=== PATIENT | male | born 1950 | race Two or more races ===

== ENCOUNTER 2020-03-06 11:24 | Inpatient (IN) | payer OTHER ==
--- NOTE | 2020-03-06 11:35 | BHS.RME ---
Substance Use & Tx History - Substance Use History Heroin Substance amount: 7-8 bags Frequency of use: Daily Physical/Psych/Mental Status - Behavior General Behavior: Increased activity (restlessness, agitation) Eye Contact: Normal - Cooperativeness Cooperativeness: Cooperative - Thinking Thought Processes: Tight, Logical, Goal Directed - Physical Health Problems Is patient presently having any pain?: Yes (flank pain and cva tenderness) Does patient presently have any injuries (include location): No Does patient currently have a fever: No Is patient : No COWS - Scale Resting Pulse: 0= [place] 80 or Below Sweatin= Chills/Flushing Restless Observation: 3= Extraneous Movement Pupil Size: 1= Pupils >than Normal Bone or Joint Aches: 4=Acute Joint/Muscle Pain Runny Nose/ Eye Tearin= Runny Nose/Eyes GI Upset > 30mins: 3= Vomiting/Diarrhea Tremor Observation: 2= Slight Tremor Visible Yawning Observation: 2= >3x During Session Anxiety or Irritability: 2=Irritable/Anxious Goose Flesh Skin: 3=Piloerection COWS Score: 23 Treatment Recommendation - Level of Care Level of Care: Acute Medical (Sent to [facility] for rule out nephrolithiasis with B/L flank pain.)
[2020-03-06 17:43] VITALS: BMI 26.9
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
[2020-03-06] MEDS ORDERED: hydrOXYzine PAMOATE 25 MG CAPSULE (FP) PO PRN (18:31)
[2020-03-06] MEDS ORDERED: ACETAMINOPHEN 325 MG TABLET (FP) PO PRN (18:31)
[2020-03-06] MEDS ORDERED: MAGNESIUM CITRATE 300 ML BOTTLE PO PRN (18:31)
[2020-03-06] MEDS ORDERED: MAGNESIUM HYDROX 2400MG/30ML ORAL SUSPENSION 30 ML CUP PO PRN (18:31)
[2020-03-06] MEDS ORDERED: METHOCARBAMOL 500 MG TABLET PO PRN (18:31)
[2020-03-06] MEDS ORDERED: MENTHOL/PHENOL 1 EACH UD MM PRN (18:31)
[2020-03-06] MEDS ORDERED: BISMUTH SUBSALICYLATE 524 MG/30 ML UD PO PRN (18:31)
[2020-03-06] MEDS ORDERED: MAG HYDROX/AL HYDROX/SIMETH 30 ML UNIT-DOSE CUP PO PRN (18:31)
[2020-03-06] MEDS ORDERED: cloNIDine HCL 0.1 MG TABLET PO PRN (18:33)
[2020-03-06] MEDS ORDERED: METHADONE HCL 10 MG TABLET (FOR DETOX USE ONLY) PO ONE (18:33)
[2020-03-06] MEDS ORDERED: METHADONE HCL 5 MG TABLET (FOR DETOX USE ONLY) PO ONE (20:30)
[2020-03-06] MEDS: IBUPROFEN 400 MG TABLET (FP) PO PRN (20:41)
[2020-03-06] MEDS: MELATONIN 5 MG TABLETS PO PRN (22:32)
[2020-03-06] MEDS: THIAMINE HCL 100 MG TABLET (FP) PO SCH (22:32)
[2020-03-07] MEDS: IBUPROFEN 400 MG TABLET (FP) PO PRN ×2 (06:36→15:04)
[2020-03-07] MEDS: PRENATAL VITAMINS W/ FOLIC ACID TABLET (FP) PO SCH (09:55)
[2020-03-07] MEDS ORDERED: METHADONE HCL 5 MG TABLET (FOR DETOX USE ONLY) PO ONE (10:00)
--- NOTE | 2020-03-07 11:04 | PN ---
BHS COWS - Scale Resting Pulse: 0= [place] 80 or Below Sweatin= No chills or Flushing Restless Observation: 0= Sits Still Pupil Size: 1= Pupils >than Normal Bone or Joint Aches: 1= Mild Discomfort Runny Nose/ Eye Tearin= None GI Upset > 30mins: 1= Stomach Cramp Tremor Observation of Outstretched Hands: 1= Tremor [place], Not Seen Yawning Observation: 0= None Anxiety or Irritability: 1=Feels Anxious/Irritable Goose Flesh Skin: 0=Smooth Skin COWS Score: 5 BHS Progress Note (SOAP) Subjective: 70 years old male admitted on 03/06/20 for opiate withdrawal sx management treating with methadone detox regiment feeling better today less general body aches mild muscle cramping discussing medication assisted treatment program encouraging mr gage picks up narcan from pharmacy upon discharge from detox mr gage was in ER on 03/06/20 for chronic back pain referred to [facility] for opiate detox mr gage is doing well with methadone detox regiment at this time Objective: 03/07/20 11:06 Vital Signs - 24 hr 03/06/20 03/06/20 03/06/20 17:42 19:32 20:31 Temperature 97.6 F 97.8 F 97.3 F L Pulse Rate 71 60 70 Respiratory 18 17 18 Rate Blood Pressure 136/75 129/77 130/72 O2 Sat by Pulse 99 100 Oximetry (%) 03/07/20 03/07/20 06:22 08:40 Temperature 97.3 F L 97.1 F L Pulse Rate 68 56 L Respiratory 18 18 Rate Blood Pressure 113/64 139/77 O2 Sat by Pulse 98 Oximetry (%) 03/07/20 11:09 lab see ER result Assessment: 03/07/20 11:10 opiate withdrawal Plan: methadone regiment
--- NOTE | 2020-03-07 11:53 | EKG ---
Test Reason : Blood Pressure : / mmHG Vent. Rate : 059 BPM Atrial Rate : 059 BPM P-R Int : 192 ms QRS Dur : 096 ms QT Int : 400 ms P-R-T Axes : 076 049 034 degrees QTc Int : 396 ms SINUS BRADYCARDIA WITH PREMATURE ATRIAL COMPLEXES OTHERWISE NORMAL ECG NO PREVIOUS ECGS AVAILABLE Confirmed by RENEE GARDNER, BASIL ([id number]) on 03/07/2020 11:53:11 AM Referred By: Confirmed By:BASIL DURAN MD
[2020-03-07] MEDS: LIDOCAINE 5% TOPICAL PATCH TP SCH (16:30)
[2020-03-07] MEDS ORDERED: LIDOCAINE PATCH REMOVAL MC SCH (22:00)
[2020-03-07] MEDS: THIAMINE HCL 100 MG TABLET (FP) PO SCH (22:11)
[2020-03-07] MEDS: MELATONIN 5 MG TABLETS PO PRN (22:12)
[2020-03-08 09:07] VITALS: BP 135/82; PULSE 73; TEMP 96.8
[2020-03-08] MEDS: IBUPROFEN 400 MG TABLET (FP) PO PRN (09:17)
[2020-03-08] MEDS: LIDOCAINE 5% TOPICAL PATCH TP SCH (09:18)
[2020-03-08] MEDS: PRENATAL VITAMINS W/ FOLIC ACID TABLET (FP) PO SCH (09:19)
--- NOTE | 2020-03-08 09:49 | PN ---
S Progress Note Note: Pt leaving today, unable to get chest xray today, will cancel order
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
[2020-03-08] MEDS ORDERED: METHADONE HCL 5 MG TABLET (FOR DETOX USE ONLY) PO ONE (10:00)
[2020-03-08] MEDS ORDERED: METHADONE HCL 10 MG TABLET (FOR DETOX USE ONLY) PO ONE (10:00)
== END 2020-03-08 11:52 | disposition other institution (70) | DRG 897 ==
LOC: YASAS 11:24 → Y3N 18:30
PROVIDERS: ADMIT Allergy & Immunology; ATTEND Allergy & Immunology
PROC: HZ2ZZZZ Detoxification Services for Substance Abuse Treatment (ICD-10-PCS; principal; 2020-03-06)
DX: F11.23 Opioid dependence with withdrawal (principal); F14.20 Cocaine dependence, uncomplicated; F17.210 Nicotine dependence, cigarettes, uncomplicated; F31.9 Bipolar disorder, unspecified; M54.5 Low back pain; G89.29 Other chronic pain; Z91.5 Personal history of self-harm
CPT/HCPCS: 86780; 87389; 93005; 93010; J0735; U0003

== ENCOUNTER 2020-03-06 12:14 | Emergency (ER) | payer OTHER ==
[2020-03-06 12:28] VITALS: TEMP 98.2; BMI 26.9
[2020-03-06] MEDS ORDERED: ACETAMINOPHEN 1000 MG/100 ML VIAL (NON FORMULARY) IVPB ONE (12:46)
[2020-03-06] MEDS ORDERED: KETOROLAC TROMETHAMINE 30 MG/1 ML VIAL IVPUSH ONE (12:46)
[2020-03-06] MEDS ORDERED: ACETAMINOPHEN INJECTION 100 ML IVPB ONE (13:13)
[2020-03-06] MEDS ORDERED: KETOROLAC TROMETHAMINE 30 MG/1 ML VIAL ONE (13:13)
[2020-03-06 13:34] LABS: BASO % 0.7 % (0-2.0); EOS % 0.8 % (0-4.5); HEMATOCRIT 39.8 % (35.4-49); HEMOGLOBIN 13.4 GM/dL (11.7-16.9); LYMPH % 18.9 % (8-40); MCH 32.1 pg (25.7-33.7); MCHC 33.6 g/dl (32.0-35.9); MEAN CELL VOLUME 95.5 fl (80-96); MEAN PLT VOLUME 7.3 fl (7.5-11.1); MONO % 18.8 % (3.8-10.2); NEUT % 60.8 % (42.8-82.8); PLATELET COUNT 273 K/MM3 (134-434); RBC 4.17 M/mm3 (4.00-5.60); RDW 13.4 % (11.9-15.9); WHITE BLOOD COUNT 10.2 K/mm3 (4.0-10.0)
[2020-03-06 14:00] LABS: ALBUMIN 4.1 g/dl (3.4-5.0); BILIRUBIN,TOTAL 1.1 mg/dL (0.2-1); BLOOD UREA NITROGEN 22.4 mg/dL (7-18); CALCIUM 9.2 mg/dL (8.5-10.1); CREATININE 1.2 mg/dL (0.55-1.3); POTASSIUM 4.5 mmol/L (3.5-5.1); TOT PROT 8.2 g/dl (6.4-8.2)
[2020-03-06 14:56] LABS: PH,URINE 5.5 (5.0-8.0); URINE APPEARANCE CLEAR; URINE BILIRUBIN NEGATIVE (NEGATIVE); URINE COLOR DK YELLOW; URINE GLUCOSE (UA) NEGATIVE (NEGATIVE); URINE KETONE NEGATIVE (NEGATIVE); URINE LEUK ESTERASE NEGATIVE (NEGATIVE); URINE NITRITE NEGATIVE (NEGATIVE); URINE PROTEIN NEGATIVE (NEGATIVE)
--- NOTE | 2020-03-06 15:17 | PDOC ---
History of Present Illness - General Chief Complaint: Back Pain Stated Complaint: BACK PAIN Time Seen by Provider: 03/06/20 12:35 - History of Present Illness Initial Comments: 03/06/20 15:15 70-year-old male with back pain x2 days seen in the emergency room yesterday was given a Motrin with minimal relief and today he was given codeine at another emergency room. He comes in today with similar complaints. No radicular sympto ms loss of bowel bladder function saddle paresthesias or systemic symptoms. Past History - Medical History Allergies/Adverse Reactions: Allergies Allergy/AdvReac Type Severity Reaction Status Date / Time No Known Allergies Allergy Verified 03/06/20 12:25 Home Medications: Ambulatory Orders NK [No Known Home Medication] 03/06/20 COPD: No GI Disorders: Yes (hep c) - Psycho-Social/Smoking History Smoking History: Current every day smoker Have you smoked in the past 12 months: Yes Number of Cigarettes Smoked Daily: 2 Information on smoking cessation initiated: No - Substance Abuse Hx (Audit-C & DAST Scrn) How often the patient has a drink containing alcohol: Monthly or less Number of drinks the patient has on a typical day: 1 or 2 How often the patient has six or more drinks on one occasion: Less than monthly Score: In Men: 4 or > Positive; In Women: 3 or > Positive: 2 Screen Result (Pos requires Nsg. Audit-10AR): Negative In the last yr the pt used illegal drug/Rx for NonMed reason: Yes Score: Yes response is considered Positive: 1 Screen Result (Positive result requires Nsg. DAST-10): Positive Review of Systems - Review of Systems Constitutional: No: Fever Musculoskeletal: Yes: Back Pain *Physical Exam - Vital Signs Last Vital Signs Temp Pulse Resp BP Pulse Ox 98.2 F 73 18 134/73 99 03/06/20 12:26 03/06/20 12:26 03/06/20 12:26 03/06/20 12:26 03/06/20 14:56 - Physical Exam 03/06/20 15:15 Lumbar spine skin color temperature normal range of motion is slightly decreased. No midline tenderness. Moderate bilateral paralumbar musculature spasm and tenderness 5 out of 5 strength bilateral lower extremities without gross sensorimotor deficits thighs and calves are soft and nontender neurovascular intact ED Treatment Course - LABORATORY CBC & Chemistry Diagram: 03/06/20 13:25 03/06/20 13:25 - ADDITIONAL ORDERS Additional order review: Laboratory Results 03/06/20 03/06/20 14:34 13:25 Sodium 130 L Potassium 4.5 Chloride 92 L Carbon Dioxide 33 H Anion Gap 5 L BUN 22.4 H Creatinine 1.2 Est GFR (CKD-EPI)AfAm 71.58 Est GFR (CKD-EPI)NonAf 61.76 Random Glucose 117 H Calcium 9.2 Total Bilirubin 1.1 H AST 36 ALT 50 Alkaline Phosphatase 90 Total Protein 8.2 Albumin 4.1 Urine Color Dk yellow Urine Appearance Clear Urine pH 5.5 Ur Specific [place] 1.025 Urine Protein Negative Urine Glucose (UA) Negative Urine Ketones Negative Urine Blood Negative Urine Nitrite Negative Urine Bilirubin Negative Urine Urobilinogen 2.0 Ur Leukocyte Esterase Negative 03/06/20 13:25 RBC 4.17 MCV 95.5 MCHC 33.6 RDW 13.4 MPV 7.3 L Neutrophils % 60.8 Lymphocytes % 18.9 Monocytes % 18.8 H Eosinophils % 0.8 Basophils % 0.7 - Medications Given in the ED: ED Medications Discontinued Medications Generic Name Dose Route Start Last Admin Trade Name Freq PRN Reason Stop Dose Admin Acetaminophen 1,000 mg 03/06/20 12:46 03/06/20 13:28 Ofirmev Injection - IVPB 03/06/20 12:47 1,000 mg ONCE ONE Administration Ketorolac Tromethamine 30 mg 03/06/20 12:46 03/06/20 13:28 Toradol Injection - IVPUSH 03/06/20 12:47 30 mg ONCE ONE Administration Medical Decision Making - Medical Decision Making 03/06/20 15:15 Unremarkable urine. Laboratory work reviewed with attending physician. Okay to discharge. Hyponatremia noted. Patient advised to add salt to food. Feeling better after Toradol and IV Tylenol. Follow-up with orthopedic Surgery. I have reviewed the pathophysiology with the patient. They are in agreement with the treatment plan all questions were answered to their satisfaction. Understanding for follow-up without fail was also conveyed to the patient. Again they are in agreement.g Discharge - Discharge Information Problems reviewed: Yes Clinical Impression/Diagnosis: Lumbar strain Condition: Stable Disposition: HOME - Admission No - Follow up/Referral Referrals: Deyvi Matthews DO [Staff Physician] - - Patient Discharge Instructions Additional Instructions: Continue Tylenol and Motrin as directed for pain. Return to the emergency room for worsening symptoms. Without fail follow-up with orthopedic surgery in 2 to 3 days for further evaluation and treatment options. - Post Discharge Activity
[2020-03-06 15:29] VITALS: BP 132/68; PULSE 72
== END 2020-03-06 15:30 | disposition home or self-care (01) ==
LOC: JER 12:14
PROC: 3E033GC Introduction of Other Therapeutic Substance into Peripheral Vein, Percutaneous Approach (ICD-10-PCS; principal; 2020-03-06)
DX: S39.012A Strain of muscle, fascia and tendon of lower back, initial encounter (principal); Y99.9 Unspecified external cause status
CPT/HCPCS: 36415; 80053; 81003; 85025; 96374; 96375; 99284-25; J0131

== ENCOUNTER 2020-03-08 11:32 | Inpatient (IN) | payer OTHER ==
[2020-03-08] MEDS ORDERED: MAG HYDROX/AL HYDROX/SIMETH 30 ML UNIT-DOSE CUP PO PRN (13:02)
[2020-03-08] MEDS ORDERED: LOPERAMIDE HCL 2 MG CAPSULE PO PRN (13:02)
[2020-03-08] MEDS ORDERED: MAGNESIUM HYDROX 2400MG/30ML ORAL SUSPENSION 30 ML CUP PO PRN (13:02)
[2020-03-08] MEDS ORDERED: ACETAMINOPHEN 325 MG TABLET (FP) PO PRN (13:02)
[2020-03-08] MEDS ORDERED: P-EPHED 60MG/TRIPROLIDI 2.5MG TABLET PO PRN (13:02)
[2020-03-08] MEDS ORDERED: MENTHOL/PHENOL 1 EACH UD MM PRN (13:02)
[2020-03-08] MEDS ORDERED: guaiFENesin 200 MG/10 ML 10 ML UNIT-DOSE CUPS PO PRN (13:02)
[2020-03-08] MEDS ORDERED: NICOTINE POLACRILEX 2 MG GUM BUC PRN (13:02)
--- NOTE | 2020-03-08 13:06 | HP ---
KYLAH GARDNER Rehab Assess/Revision - Admission History Admitted to Rehab from: [facility] Date of Admission to Rehab: 03/08/2020 - Vital signs Vital Signs: Vital Signs Period Temp Pulse Resp BP Sys/Potts Pulse Ox Last 24 Hr 59 17 123/74 96 - Findings Detox History & Physical reviewed: Yes Concur with findings: Yes Inpatient Rehab Admission - Rehab Decision to Admit Inpatient rehab admission?: Yes - Initial Determination Are CD services needed?: Yes Free of communicable disease: Yes Not in need of hospitalization: Yes - Rehab Admission Criteria Previous failed treatment: Yes Poor recovery environment: Yes Comorbidities: Yes Lacks judgement: No Patient is meeting Inpatient Rehab admission criteria:: Yes
[2020-03-08] MEDS: THIAMINE HCL 100 MG TABLET (FP) PO SCH (22:40)
[2020-03-08] MEDS: IBUPROFEN 400 MG TABLET (FP) PO PRN (22:40)
[2020-03-08] MEDS: LIDOCAINE PATCH REMOVAL MC SCH (22:40)
[2020-03-08] MEDS: MELATONIN 5 MG TABLETS PO SCH (22:40)
[2020-03-09] MEDS: IBUPROFEN 400 MG TABLET (FP) PO PRN (08:17)
[2020-03-09] MEDS: LIDOCAINE 5% TOPICAL PATCH TP SCH (09:35)
[2020-03-09] MEDS: PRENATAL VITAMINS W/ FOLIC ACID TABLET (FP) PO SCH (09:35)
[2020-03-09] MEDS: NICOTINE 7 MG/24 HOURS TOPICAL PATCH TD SCH (09:36)
[2020-03-09 11:47] LABS: ALBUMIN 2.9 g/dl (3.4-5.0); BILIRUBIN,TOTAL 0.8 mg/dL (0.2-1); BLOOD UREA NITROGEN 12.9 mg/dL (7-18); CALCIUM 9.2 mg/dL (8.5-10.1); TOT PROT 6.7 g/dl (6.4-8.2)
[2020-03-09] MEDS: CYCLOBENZAPRINE HCL 10 MG TABLET (FP) PO PRN ×2 (12:05→22:10)
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
[2020-03-09] MEDS ORDERED: IBUPROFEN 400 MG TABLET (FP) PO PRN (19:15)
[2020-03-09] MEDS: MAGNESIUM CITRATE 300 ML BOTTLE PO PRN (19:48)
[2020-03-09] MEDS: LIDOCAINE PATCH REMOVAL MC SCH (22:10)
[2020-03-09] MEDS: MELATONIN 5 MG TABLETS PO SCH (22:10)
[2020-03-09] MEDS: THIAMINE HCL 100 MG TABLET (FP) PO SCH (22:10)
[2020-03-10] MEDS: IBUPROFEN 600 MG TABLET (FP) PO PRN ×2 (09:22→17:34)
[2020-03-10] MEDS: PRENATAL VITAMINS W/ FOLIC ACID TABLET (FP) PO SCH (09:22)
[2020-03-10] MEDS: CYCLOBENZAPRINE HCL 10 MG TABLET (FP) PO PRN ×2 (09:22→17:34)
[2020-03-10] MEDS: LIDOCAINE 5% TOPICAL PATCH TP SCH (09:23)
[2020-03-10] MEDS: NICOTINE 7 MG/24 HOURS TOPICAL PATCH TD SCH (09:28)
--- NOTE | 2020-03-10 11:55 | PN ---
[facility] Progress Note Note: Patient is referred for fever, flank and back pain and malaise. He is examined in his bed, in no apparent distress. Patient reports pain in his kidney and back, he also reports SOB when he places mask on. He denies chest pain, chills, palpitation, N/V or diarrhea He had a one-time fever of 100.2*F, he was given Motrin, at time of visit, temperature had resolved. At baseline, patient has chronic back pain and uses wheelchair for locomotion. Vital Signs - 8 hr 03/10/20 03/10/20 03/10/20 07:02 08:00 08:02 Temperature 97 F L 98.0 F Pulse Rate 67 78 Respiratory 18 18 Rate Blood Pressure 145/93 154/94 O2 Sat by Pulse 100 97 Oximetry (%) 03/10/20 03/10/20 03/10/20 09:08 10:25 11:39 Temperature 100.2 F H 98.7 F 97.8 F Pulse Rate 76 Respiratory 18 Rate Blood Pressure 123/76 O2 Sat by Pulse Oximetry (%) PE Chest: Lungs clear in all [place], not using accessory muscles CVS: S1S2, RRR Abdomen: BS x 4, firm, non-tender, mild R CVA tenderness Extremities: No cyanosis A/P Patient is a 70 year old man who presents with one-time fever this morning, resolved after 1 dose of Motrin 1. CBC, BMP, UA/C&S 2. Increase oral fluid intake 3. Monitoring ongoing d/w nursing.
[2020-03-10 12:43] LABS: HEMATOCRIT 40.1 % (35.4-49); HEMOGLOBIN 13.4 GM/dL (11.7-16.9); MCH 31.8 pg (25.7-33.7); MCHC 33.4 g/dl (32.0-35.9); MEAN CELL VOLUME 95.1 fl (80-96); MEAN PLT VOLUME 7.2 fl (7.5-11.1); PLATELET COUNT 318 K/MM3 (134-434); RBC 4.21 M/mm3 (4.00-5.60); RDW 13.3 % (11.9-15.9); WHITE BLOOD COUNT 7.8 K/mm3 (4.0-10.0)
[2020-03-10 13:09] LABS: BLOOD UREA NITROGEN 10.2 mg/dL (7-18); CALCIUM 9.3 mg/dL (8.5-10.1); POTASSIUM 5.4 mmol/L (3.5-5.1)
[2020-03-10] MEDS ORDERED: SODIUM POLYSTYRENE SULFONATE 15 GM/60 ML BOTTLE PO ONE (17:11)
--- NOTE | 2020-03-10 17:16 | PN ---
S Progress Note Note: Lab Review BMP resulted with abnormal potassium level Abnormal Lab Results 03/10/20 03/10/20 12:00 12:00 MPV 7.2 L Potassium 5.4 H Anion Gap 5 L Random Glucose 143 H STAT dose of kayexalate 15 gm ordered. Repeat BMP in the morning d/w nursing
[2020-03-10] MEDS: THIAMINE HCL 100 MG TABLET (FP) PO SCH (21:14)
[2020-03-10] MEDS: MELATONIN 5 MG TABLETS PO SCH (21:15)
[2020-03-10] MEDS: LIDOCAINE PATCH REMOVAL MC SCH (21:15)
[2020-03-11] MEDS: CYCLOBENZAPRINE HCL 10 MG TABLET (FP) PO PRN ×2 (06:48→21:24)
[2020-03-11] MEDS: IBUPROFEN 600 MG TABLET (FP) PO PRN (06:48)
[2020-03-11] MEDS ORDERED: KETOROLAC TROMETHAMINE 30 MG/1 ML VIAL IM PRN (07:11)
--- NOTE | 2020-03-11 07:14 | PN ---
[facility] Progress Note Note: Vital Signs Temperature 98.4 F 03/11/20 06:45 Pulse Rate 84 03/11/20 06:45 Respiratory Rate 16 03/11/20 06:45 Blood Pressure 152/103 H 03/11/20 06:45 O2 Sat by Pulse Oximetry (%) 95 03/11/20 06:45 Laboratory Tests 03/09/20 03/10/20 03/10/20 08:30 12:00 12:00 WBC 7.8 RBC 4.21 Hgb 13.4 Hct 40.1 MCV 95.1 MCH 31.8 MCHC 33.4 RDW 13.3 Plt Count 318 MPV 7.2 L Sodium 138 139 Potassium 5.0 5.4 H Chloride 102 104 Carbon Dioxide 32 30 Anion Gap 3 L 5 L BUN 12.9 10.2 Creatinine 1.0 1.0 Est GFR (CKD-EPI)AfAm 89.23 89.23 Est GFR (CKD-EPI)NonAf 76.99 76.99 Random Glucose 115 H 143 H Calcium 9.2 9.3 Total Bilirubin 0.8 AST 21 ALT 34 Alkaline Phosphatase 74 Total Protein 6.7 Albumin 2.9 L seen for unresolved back pain. client cont to complain of back pain now 06/08, pointing to mid flank area of both sides states radiating down right lateral side of back. requesting er eval. "I want the injection they gave me, it took my pain away". recently seen at [facility]- ER 03/06/2020 for same complaint... DX BACK STARIN, RECC ORTHO F/U labs noted. urine cx pending denies fever, chills, numbness, weakness, No radicular symptoms loss of bowel/ bladder function saddle paresthesias or systemic symptoms.+ intermittent sob, feels related to mask and pain unable to walk due to pain PE a/ o x3 appears to be in moderate distress due to pain, using wc for locomotion, propelling self with use of legs. Lumbar spine range of motion is slightly decreased 2/2 pain. No midline tenderness. Moderate bilateral paralumbar musculature tenderness 5 out of 5 strength bilateral lower extremities Ble non tender neuro-vascular intact 03/08/20 cxr noted with pleural thickening ? effusion- will repeat cxr for f/u. toradol 30 mg im now, then 15 mg q6 prn x 3 days. cont to monitor clinically
[2020-03-11] MEDS ORDERED: KETOROLAC TROMETHAMINE 30 MG/1 ML VIAL IM ONE (07:19)
[2020-03-11] MEDS: PRENATAL VITAMINS W/ FOLIC ACID TABLET (FP) PO SCH (09:56)
[2020-03-11] MEDS: NICOTINE 7 MG/24 HOURS TOPICAL PATCH TD SCH (09:56)
[2020-03-11] MEDS: LIDOCAINE 5% TOPICAL PATCH TP SCH (09:56)
[2020-03-11] MEDS: KETOROLAC TROMETHAMINE 15 MG/ML VIAL IM PRN ×2 (14:13→21:24)
[2020-03-11 16:39] LABS: BLOOD UREA NITROGEN 13.8 mg/dL (7-18); CREATININE 1.1 mg/dL (0.55-1.3); POTASSIUM 5.3 mmol/L (3.5-5.1)
--- NOTE | 2020-03-11 18:46 | PN ---
[facility] Progress Note Note: Potassium remains elevated. CMP Sodium 139 mmol/L (136-145) 03/11/20 08:14 Potassium 5.3 mmol/L (3.5-5.1) H 03/11/20 08:14 Chloride 103 mmol/L (98-107) 03/11/20 08:14 Carbon Dioxide 29 mmol/L (21-32) 03/11/20 08:14 Anion Gap 8 MMOL/L (8-16) 03/11/20 08:14 BUN 13.8 mg/dL (7-18) 03/11/20 08:14 Creatinine 1.1 mg/dL (0.55-1.3) 03/11/20 08:14 Est GFR (CKD-EPI)AfAm 79.52 03/11/20 08:14 Est GFR (CKD-EPI)NonAf 68.61 03/11/20 08:14 Random Glucose 176 mg/dL (74-106) H 03/11/20 08:14 Calcium 9.0 mg/dL (8.5-10.1) 03/11/20 08:14 Total Bilirubin 0.8 mg/dL (0.2-1) 03/09/20 08:30 AST 21 U/L (15-37) 03/09/20 08:30 ALT 34 U/L (13-61) 03/09/20 08:30 Alkaline Phosphatase 74 U/L (45-117) 03/09/20 08:30 Total Protein 6.7 g/dl (6.4-8.2) 03/09/20 08:30 Albumin 2.9 g/dl (3.4-5.0) L 03/09/20 08:30 Vital Signs 03/11/20 03/11/20 15:53 19:39 Temperature 98.9 F Pulse Rate 79 Respiratory 18 Rate Blood Pressure 138/77 O2 Sat by Pulse 95 97 Oximetry (%) Plan: Will place on decreased potassium diet. Todays CXR reviewed and unremarkable.
[2020-03-11] MEDS: LIDOCAINE PATCH REMOVAL MC SCH (21:22)
[2020-03-11] MEDS: MELATONIN 5 MG TABLETS PO SCH (21:22)
[2020-03-11] MEDS: THIAMINE HCL 100 MG TABLET (FP) PO SCH (21:23)
[2020-03-12] MEDS ORDERED: PT OWN MED DRAWER 7, Y5N ONE ×2 (06:40→22:01)
[2020-03-12] MEDS: CYCLOBENZAPRINE HCL 10 MG TABLET (FP) PO PRN (06:41)
[2020-03-12] MEDS: KETOROLAC TROMETHAMINE 15 MG/ML VIAL IM PRN (06:47)
[2020-03-12] MEDS: PRENATAL VITAMINS W/ FOLIC ACID TABLET (FP) PO SCH (09:44)
[2020-03-12] MEDS: LIDOCAINE 5% TOPICAL PATCH TP SCH (09:44)
[2020-03-12] MEDS: NICOTINE 7 MG/24 HOURS TOPICAL PATCH TD SCH (09:44)
--- NOTE | 2020-03-12 14:46 | PN ---
[facility] Progress Note Note: Lab reviewed below. Unresolved Hyperkalemia. Pt c/o severe Lower back pain. Reports pain is 10/10. Pt was put on Toradol and pharmacy alert for contraindication due to Hyperkalemia hypernatremia effects. Pt has been spoken to concerning high potassium and need to bring it down. pt understood. Reports he has not been drinking water and also likes orange juice. Laboratory Tests 03/09/20 03/10/20 03/10/20 08:30 12:00 12:00 WBC 7.8 RBC 4.21 Hgb 13.4 Hct 40.1 MCV 95.1 MCH 31.8 MCHC 33.4 RDW 13.3 Plt Count 318 MPV 7.2 L Sodium 138 139 Potassium 5.0 5.4 H Chloride 102 104 Carbon Dioxide 32 30 Anion Gap 3 L 5 L BUN 12.9 10.2 Creatinine 1.0 1.0 Est GFR (CKD-EPI)AfAm 89.23 89.23 Est GFR (CKD-EPI)NonAf 76.99 76.99 POC Glucometer Random Glucose 115 H 143 H Calcium 9.2 9.3 Total Bilirubin 0.8 AST 21 ALT 34 Alkaline Phosphatase 74 Total Protein 6.7 Albumin 2.9 L 03/11/20 03/12/20 08:14 06:37 WBC RBC Hgb Hct MCV MCH MCHC RDW Plt Count MPV Sodium 139 Potassium 5.3 H Chloride 103 Carbon Dioxide 29 Anion Gap 8 BUN 13.8 Creatinine 1.1 Est GFR (CKD-EPI)AfAm 79.52 Est GFR (CKD-EPI)NonAf 68.61 POC Glucometer 120 Random Glucose 176 H Calcium 9.0 Total Bilirubin AST ALT Alkaline Phosphatase Total Protein Albumin Hyperkalemia K+ = 5.4 Plan;D/w pt to increase po fluids d/c Toradol due to unresolved hyperkalemia dietary consult in the morning Tylenol 650 mg po Q6H x 2 days and re-evaluate Flexeril 5 mg po TID prn Lidocaine patch as directed Analgesic patch at 10pm after patch removed. d/w pt to avoid OJ for now Increase po fluids-water.
[2020-03-12] MEDS ORDERED: MASKS NR ONE (15:09)
[2020-03-12] MEDS ORDERED: ACETAMINOPHEN 325 MG TABLET (FP) PO SCH ×2 (15:45→22:00)
[2020-03-12] MEDS: ACETAMINOPHEN 325 MG TABLET (FP) PO PRN (16:59)
[2020-03-12] MEDS: MAGNESIUM CITRATE 300 ML BOTTLE PO PRN (19:17)
[2020-03-12] MEDS: MELATONIN 5 MG TABLETS PO SCH (21:59)
[2020-03-12] MEDS: METHYL SALICYLATE/MENTHOL OINT 30 GM TUBE TP SCH (21:59)
[2020-03-12] MEDS: THIAMINE HCL 100 MG TABLET (FP) PO SCH (21:59)
[2020-03-12] MEDS: LIDOCAINE PATCH REMOVAL MC SCH (21:59)
[2020-03-13] MEDS: CYCLOBENZAPRINE HCL 10 MG TABLET (FP) PO PRN ×2 (03:28→09:50)
[2020-03-13] MEDS: ACETAMINOPHEN 325 MG TABLET (FP) PO PRN ×2 (03:29→09:50)
[2020-03-13] MEDS: LIDOCAINE 5% TOPICAL PATCH TP SCH (09:49)
[2020-03-13] MEDS: PRENATAL VITAMINS W/ FOLIC ACID TABLET (FP) PO SCH (09:49)
[2020-03-13] MEDS: NICOTINE 7 MG/24 HOURS TOPICAL PATCH TD SCH (09:49)
--- NOTE | 2020-03-13 13:48 | PN ---
[facility] Progress Note Note: Lab review Laboratory Tests 03/09/20 03/10/20 03/10/20 08:30 12:00 12:00 WBC 7.8 RBC 4.21 Hgb 13.4 Hct 40.1 MCV 95.1 MCH 31.8 MCHC 33.4 RDW 13.3 Plt Count 318 MPV 7.2 L Sodium 138 139 Potassium 5.0 5.4 H Chloride 102 104 Carbon Dioxide 32 30 Anion Gap 3 L 5 L BUN 12.9 10.2 Creatinine 1.0 1.0 Est GFR (CKD-EPI)AfAm 89.23 89.23 Est GFR (CKD-EPI)NonAf 76.99 76.99 POC Glucometer Random Glucose 115 H 143 H Calcium 9.2 9.3 Total Bilirubin 0.8 AST 21 ALT 34 Alkaline Phosphatase 74 Total Protein 6.7 Albumin 2.9 L 03/11/20 03/12/20 03/13/20 08:14 06:37 07:30 WBC RBC Hgb Hct MCV MCH MCHC RDW Plt Count MPV Sodium 139 Potassium 5.3 H 5.6 H Chloride 103 Carbon Dioxide 29 Anion Gap 8 BUN 13.8 Creatinine 1.1 Est GFR (CKD-EPI)AfAm 79.52 Est GFR (CKD-EPI)NonAf 68.61 POC Glucometer 120 Random Glucose 176 H Calcium 9.0 Total Bilirubin AST ALT Alkaline Phosphatase Total Protein Albumin Repeat K+ still elevated at 5.6 today Pt denies chest pain, n/v. Reports BM x 3 today-normal Plan:Kayexalate 15 mg po once increase po fluids but no orange juice re-evaluate pt and repeat K+ level on 03/13/20
[2020-03-13] MEDS ORDERED: SODIUM POLYSTYRENE SULFONATE 15 GM/60 ML BOTTLE PO ONE (14:00)
[2020-03-13] MEDS ORDERED: IBUPROFEN 600 MG TABLET (FP) PO PRN (16:11)
[2020-03-13] MEDS ORDERED: CYCLOBENZAPRINE HCL 10 MG TABLET (FP) PO PRN (16:13)
[2020-03-13] MEDS ORDERED: IBUPROFEN 400 MG TABLET (FP) PO ONE (16:15)
[2020-03-13] MEDS ORDERED: ACETAMINOPHEN 325 MG TABLET (FP) PO PRN (16:15)
--- NOTE | 2020-03-13 17:07 | EKG ---
Test Reason : Blood Pressure : / mmHG Vent. Rate : 088 BPM Atrial Rate : 088 BPM P-R Int : 188 ms QRS Dur : 082 ms QT Int : 330 ms P-R-T Axes : 069 056 042 degrees QTc Int : 399 ms SINUS RHYTHM WITH OCCASIONAL PREMATURE VENTRICULAR COMPLEXES LEFT ATRIAL ENLARGEMENT NONSPECIFIC ST ABNORMALITY ABNORMAL ECG Confirmed by MD WILNER, THADDEUS ([id number]) on 03/13/2020 5:06:21 PM Referred By: Confirmed By:THADDEUS DARBY MD
[2020-03-13] MEDS: METHOCARBAMOL 500 MG TABLET PO SCH ×2 (17:21→21:24)
[2020-03-13] MEDS: IBUPROFEN 400 MG TABLET (FP) PO PRN (17:22)
[2020-03-13] MEDS: MELATONIN 5 MG TABLETS PO SCH (21:24)
[2020-03-13] MEDS: THIAMINE HCL 100 MG TABLET (FP) PO SCH (21:24)
[2020-03-13] MEDS: METHYL SALICYLATE/MENTHOL OINT 30 GM TUBE TP SCH (21:25)
[2020-03-13] MEDS: LIDOCAINE PATCH REMOVAL MC SCH (21:25)
[2020-03-14] MEDS: IBUPROFEN 400 MG TABLET (FP) PO PRN ×2 (02:36→12:48)
[2020-03-14] MEDS: ACETAMINOPHEN 325 MG TABLET (FP) PO PRN (08:51)
[2020-03-14] MEDS ORDERED: PT OWN MED DRAWER 7, Y5N ONE (09:06)
[2020-03-14] MEDS: NICOTINE 7 MG/24 HOURS TOPICAL PATCH TD SCH (09:33)
[2020-03-14] MEDS: LIDOCAINE 5% TOPICAL PATCH TP SCH (09:33)
[2020-03-14] MEDS: PRENATAL VITAMINS W/ FOLIC ACID TABLET (FP) PO SCH (09:33)
[2020-03-14 11:36] LABS: ALBUMIN 2.5 g/dl (3.4-5.0); BILIRUBIN,TOTAL 0.3 mg/dL (0.2-1); BLOOD UREA NITROGEN 13.1 mg/dL (7-18); CALCIUM 8.8 mg/dL (8.5-10.1); TOT PROT 6.2 g/dl (6.4-8.2)
--- NOTE | 2020-03-14 13:28 | PN ---
S Progress Note Note: Patient with c/o pain, reports that present pain regimen is not effective. Pain regimen changed: Motrin at 800mg TID Roboxin at 750 mg QID Maintain Lidoderm patch John Benjamin at night Continue to monitor.
[2020-03-14] MEDS: METHOCARBAMOL 500 MG TABLET PO SCH ×3 (14:13→21:20)
[2020-03-14] MEDS: THIAMINE HCL 100 MG TABLET (FP) PO SCH (21:21)
[2020-03-14] MEDS: MELATONIN 5 MG TABLETS PO SCH (21:21)
[2020-03-14] MEDS: METHYL SALICYLATE/MENTHOL OINT 30 GM TUBE TP SCH (21:22)
[2020-03-14] MEDS: LIDOCAINE PATCH REMOVAL MC SCH (21:22)
[2020-03-15] MEDS: IBUPROFEN 400 MG TABLET (FP) PO PRN ×2 (00:17→07:58)
[2020-03-15 07:03] VITALS: BP 149/89; PULSE 72; TEMP 97.5
[2020-03-15] MEDS: METHOCARBAMOL 500 MG TABLET PO SCH ×2 (09:02→13:42)
[2020-03-15] MEDS: PRENATAL VITAMINS W/ FOLIC ACID TABLET (FP) PO SCH (09:03)
[2020-03-15] MEDS: LIDOCAINE 5% TOPICAL PATCH TP SCH (09:03)
[2020-03-15] MEDS: NICOTINE 7 MG/24 HOURS TOPICAL PATCH TD SCH (09:03)
--- NOTE | 2020-03-15 10:35 | PN ---
[facility] Progress Note Note: lab review Laboratory Last Values WBC 7.8 K/mm3 (4.0-10.0) 03/10/20 12:00 RBC 4.21 M/mm3 (4.00-5.60) 03/10/20 12:00 Hgb 13.4 GM/dL (11.7-16.9) 03/10/20 12:00 Hct 40.1 % (35.4-49) 03/10/20 12:00 MCV 95.1 fl (80-96) 03/10/20 12:00 MCH 31.8 pg (25.7-33.7) 03/10/20 12:00 MCHC 33.4 g/dl (32.0-35.9) 03/10/20 12:00 RDW 13.3 % (11.9-15.9) 03/10/20 12:00 Plt Count 318 K/MM3 (134-434) 03/10/20 12:00 MPV 7.2 fl (7.5-11.1) L 03/10/20 12:00 Sodium 141 mmol/L (136-145) 03/14/20 07:50 Potassium 5.0 mmol/L (3.5-5.1) 03/14/20 07:50 Potassium Cancelled 03/14/20 07:50 Chloride 107 mmol/L (98-107) 03/14/20 07:50 Carbon Dioxide 30 mmol/L (21-32) 03/14/20 07:50 Anion Gap 4 MMOL/L (8-16) L 03/14/20 07:50 BUN 13.1 mg/dL (7-18) 03/14/20 07:50 Creatinine 1.0 mg/dL (0.55-1.3) 03/14/20 07:50 Est GFR (CKD-EPI)AfAm 89.23 03/14/20 07:50 Est GFR (CKD-EPI)NonAf 76.99 03/14/20 07:50 POC Glucometer 120 UNITS (80-120) 03/12/20 06:37 Random Glucose 108 mg/dL (74-106) H 03/14/20 07:50 Hemoglobin A1c % 7.0 % (4.2-6.3) H 03/14/20 07:50 Calcium 8.8 mg/dL (8.5-10.1) 03/14/20 07:50 Total Bilirubin 0.3 mg/dL (0.2-1) 03/14/20 07:50 AST 21 U/L (15-37) 03/14/20 07:50 ALT 27 U/L (13-61) 03/14/20 07:50 Alkaline Phosphatase 71 U/L (45-117) 03/14/20 07:50 Total Protein 6.2 g/dl (6.4-8.2) L 03/14/20 07:50 Albumin 2.5 g/dl (3.4-5.0) L 03/14/20 07:50 K+ = improved 5.0 Glc = 108 mg/dl
[2020-03-15] MEDS ORDERED: GABAPENTIN 100 MG CAPSULE PO PRN (10:44)
--- NOTE | 2020-03-15 10:57 | PN ---
S Progress Note Note: Patient seen for chronic back pain. Patient was seen at [facility] [place] 03/06/20 for the same issue. Patient Aox3 no acute distress ENT WNL FULL ROM, getting around in wheelchair able to self proper dx: Chronic bilateral sciatica Patient to encourage to follow up with PCP and ortho upon d/c added Gabapentin PRN 100mg for pain relief Continue to monitor
--- NOTE | 2020-03-15 13:40 | DS ---
[facility] Rehab Discharge Summary - [facility] Rehab Discharge Summary Admission Date: 03/08/20 Discharge Date: 03/15/20 - History Present History: Cocaine dependence, Opioid dependence Additional Comments: Patient successfully completed rehabilitation program. Patient medically stable in no distress. Patient to follow up wit PCP 1-2 weeks post discharge. Pertinent Past History: Back Pain Lumbar Strain - Discharge Physical Exam Vital Signs: Vital Signs Temperature 97.5 F L 03/15/20 07:02 Pulse Rate 72 03/15/20 07:02 Respiratory Rate 18 03/15/20 07:02 Blood Pressure 149/89 03/15/20 07:02 O2 Sat by Pulse Oximetry (%) 96 03/15/20 12:27 Pertinent Admission Physical Exam Findings: Current Active Problems Cocaine use disorder (Chronic) Opioid use disorder (Chronic) Substance induced mood disorder (Chronic) Vital Signs Temperature 97.5 F L 03/15/20 07:02 Pulse Rate 72 03/15/20 07:02 Respiratory Rate 18 03/15/20 07:02 Blood Pressure 149/89 03/15/20 07:02 O2 Sat by Pulse Oximetry (%) 96 03/15/20 12:27 Laboratory Last Values WBC 7.8 K/mm3 (4.0-10.0) 03/10/20 12:00 RBC 4.21 M/mm3 (4.00-5.60) 03/10/20 12:00 Hgb 13.4 GM/dL (11.7-16.9) 03/10/20 12:00 Hct 40.1 % (35.4-49) 03/10/20 12:00 MCV 95.1 fl (80-96) 03/10/20 12:00 MCH 31.8 pg (25.7-33.7) 03/10/20 12:00 MCHC 33.4 g/dl (32.0-35.9) 03/10/20 12:00 RDW 13.3 % (11.9-15.9) 03/10/20 12:00 Plt Count 318 K/MM3 (134-434) 03/10/20 12:00 MPV 7.2 fl (7.5-11.1) L 03/10/20 12:00 Sodium 141 mmol/L (136-145) 03/14/20 07:50 Potassium 5.0 mmol/L (3.5-5.1) 03/14/20 07:50 Potassium Cancelled 03/14/20 07:50 Chloride 107 mmol/L (98-107) 03/14/20 07:50 Carbon Dioxide 30 mmol/L (21-32) 03/14/20 07:50 Anion Gap 4 MMOL/L (8-16) L 03/14/20 07:50 BUN 13.1 mg/dL (7-18) 03/14/20 07:50 Creatinine 1.0 mg/dL (0.55-1.3) 03/14/20 07:50 Est GFR (CKD-EPI)AfAm 89.23 03/14/20 07:50 Est GFR (CKD-EPI)NonAf 76.99 03/14/20 07:50 POC Glucometer 120 UNITS (80-120) 03/12/20 06:37 Random Glucose 108 mg/dL (74-106) H 03/14/20 07:50 Hemoglobin A1c % 7.0 % (4.2-6.3) H 03/14/20 07:50 Calcium 8.8 mg/dL (8.5-10.1) 03/14/20 07:50 Total Bilirubin 0.3 mg/dL (0.2-1) 03/14/20 07:50 AST 21 U/L (15-37) 03/14/20 07:50 ALT 27 U/L (13-61) 03/14/20 07:50 Alkaline Phosphatase 71 U/L (45-117) 03/14/20 07:50 Total Protein 6.2 g/dl (6.4-8.2) L 03/14/20 07:50 Albumin 2.5 g/dl (3.4-5.0) L 03/14/20 07:50 AO x3, no acute distress EENT WNL No adventitious breath sounds Skin intact, no swelling Full ROM, Weight bearing, ambulatory - Treatment Discharge Condition: Discharge condition good Hospital Course: Stable, engaged - Medication Discharge Medications: Ambulatory Orders Ibuprofen [Motrin -] 800 mg PO Q8H PRN #30 tablet 03/15/20 Naloxone HCl [Narcan] 4 mg NS ASDIR PRN #1 spray 03/15/20 - Medication-Assisted Treatment (MAT) Medication-Assisted Treatment (MAT): No MAT Follow-up Referral: Patient referred to [place] [facility] - Discharge Instructions Diet, activity, other medical instructions: Diet: Activity: Other medical instructions: - Diagnosis (1) Cocaine use disorder Current Visit: Yes Status: Chronic (2) Opioid use disorder Current Visit: Yes Status: Chronic (3) Substance induced mood disorder Current Visit: Yes Status: Chronic (4) Lumbar strain Current Visit: Yes Status: Acute (5) Back pain Current Visit: Yes Status: Chronic Qualifiers: Back pain location: low back pain Back pain laterality: bilateral Sciatica presence: with sciatica - Follow-up Referral Minutes to complete discharge: 15 - AMA Did Patient Leave Against Medical Advice: No Additional Comments: Follow up with outpatient referral. Follow up with PCP 1-2 weeks Follow with Orthopedic
== END 2020-03-15 12:35 | disposition home or self-care (01) | DRG 895 ==
LOC: YASAS 11:32 → Y3E 11:33
PROVIDERS: ADMIT Allergy & Immunology; ATTEND Allergy & Immunology
PROC: HZ42ZZZ Group Counseling for Substance Abuse Treatment, Cognitive-Behavioral (ICD-10-PCS; principal; 2020-03-08)
DX: F11.20 Opioid dependence, uncomplicated (principal); F14.20 Cocaine dependence, uncomplicated; F19.24 Other psychoactive substance dependence with psychoactive substance-induced mood disorder; E87.5 Hyperkalemia; G62.9 Polyneuropathy, unspecified; R50.9 Fever, unspecified; S39.012A Strain of muscle, fascia and tendon of lower back, initial encounter; M54.42 Lumbago with sciatica, left side; M54.41 Lumbago with sciatica, right side; Z87.820 Personal history of traumatic brain injury; Z99.3 Dependence on wheelchair; X58.XXXA Exposure to other specified factors, initial encounter; Y93.89 Activity, other specified; Y92.89 Other specified places as the place of occurrence of the external cause; Y99.8 Other external cause status
CPT/HCPCS: 36415; 71046-TC-FY; 80048; 80053; 82962; 83036; 84132; 85027; 87086; 93005; 93010